=== PATIENT | female | born 1980 | race Caucasian/White ===

== ENCOUNTER 2017-03-04 04:17 | Emergency (ER) | payer OTHER ==
[~2017-03-04] VITALS: Ht 182.9 cm; Wt 118.0 kg
[~2017-03-04 04:17] MED LIST: IBUP800T23 PO; ROBA750T3 PO
[2017-03-04 04:22] VITALS: BP 116/77; PULSE 72; RESP 18; TEMP 98.5; O2SAT 98
[2017-03-04] MEDS ORDERED: VENTAER INH (04:31)
[2017-03-04] MEDS ORDERED: ZOFR4TAB PO (04:31)
[2017-03-04] MEDS ORDERED: SODIUM CHLOR 0.9% 1000 ML INJ 1,000 ML IV ONE (04:45)
[2017-03-04] MEDS ORDERED: DIPHENOXYLATE/ATROPINE 2.5 MG/0.025 MG TAB PO ONE (04:45)
[2017-03-04] MEDS ORDERED: ONDANSETRON HCL 4 MG/2 ML VIAL IV PUSH ONE (04:45)
[2017-03-04] MEDS ORDERED: LOMO2.5T PO (04:51)
[2017-03-04] MEDS ORDERED: ZOFR4TAB3 SL (04:51)
--- NOTE | 2017-03-04 04:51 | PD ---
HPI Chief Complaint: GI Complaint Time Seen by Provider: 04:38 Travel History International Travel<30 days: No Contact w/Intl Traveler<30days: No Traveled to known affect area: No History of Present Illness HPI 36-year-old female complains of abdominal cramping with nausea vomiting and diarrhea. Patient states that symptoms started yesterday. Patient states that she had fever yesterday. Patient states that she was seen by personal physician yesterday and given Phenergan IM injection. Patient states that she had persistent vomiting despite the medication. Patient denies any blood or mucus in the stool. Patient denies any headache. Patient denies any chest pain or shortness of breath. Patient states that the abdominal pain mild intermittent cramping pain localized to lower abdomen. Patient denies any pain radiation. Patient states that she is on her menstruation period now. PFSH Past Medical History Asthma: Yes Cardiovascular Problems: Yes (HTN) Diabetes: Yes (GESTATIONAL) Diminished Hearing: No Respiratory: Yes (Asthma) Influenza Vaccination: No ?: Not LMP: 03/04/17 Past Surgical History Surgical History: No Previous Surgery Section: Yes (x1) Social History Alcohol Use: No Tobacco Use: No Substance Use: No Allergies-Medications (Allergen,Severity, Reaction): Coded Allergies: No Known Allergies (Unverified , 03/04/17) Reported Meds & Prescriptions Reported Meds & Active Scripts Active Ibuprofen 800 Mg Tab 800 Mg PO Q8HR PRN Robaxin-750 (Methocarbamol) 750 Mg Tab 750 Mg PO QID Reported Zofran (Ondansetron HCl) 4 Mg Tab 4 Mg PO Q6HR PRN Ventolin Hfa 18 GM Inh (Albuterol Sulfate) 90 Mcg/Act Aer 1 Puff INH Q4H PRN Review of Systems General / Constitutional: No: Fever Eyes: No: Visual changes HENT: No: Headaches Cardiovascular: No: Chest Pain or Discomfort Respiratory: No: Shortness of Breath Gastrointestinal: Positive: Nausea, Vomiting, Diarrhea, Abdominal Pain Genitourinary: No: Dysuria Musculoskeletal: No: Pain Skin: No Rash Neurologic: No: Weakness Psychiatric: No: Depression Endocrine: No: Polydipsia Hematologic/Lymphatic: No: Easy Bruising Physical Exam Narrative GENERAL: Well-nourished, well-developed patient. SKIN: Focused skin assessment warm/dry. HEAD: Normocephalic. EYES: No scleral icterus. No injection or drainage. NECK: Supple, trachea midline. No JVD or lymphadenopathy. CARDIOVASCULAR: Regular rate and rhythm without murmurs, gallops, or rubs. RESPIRATORY: Breath sounds equal bilaterally. No accessory muscle use. GASTROINTESTINAL: Abdomen soft, non-tender, nondistended. MUSCULOSKELETAL: No cyanosis, or edema. BACK: Nontender without obvious deformity. No CVA tenderness. Neurologic exam normal. Data Data Last Documented VS Vital Signs Date Time Temp Pulse Resp B/P Pulse Ox O2 Delivery O2 Flow Rate FiO2 03/04/17 04:22 98.5 72 18 116/77 98 Orders Complete Blood Count With Diff (03/04/17 04:43) Comprehensive Metabolic Panel (03/04/17 04:43) Iv Access Insert/Monitor (03/04/17 04:43) Ecg Monitoring (03/04/17 04:43) Oximetry (03/04/17 04:43) Sodium Chlor 0.9% 1000 Ml Inj (Ns 1000 M (03/04/17 04:45) Ondansetron Inj (Zofran Inj) (03/04/17 04:45) Diphenoxylate/Atropine Tab (Lomotil Tab) (03/04/17 04:45) MDM Medical Decision Making Medical Screen Exam Complete: Yes Emergency Medical Condition: Yes Differential Diagnosis Differential diagnosis including gastroenteritis, dehydration, electrolyte imbalance. Narrative Course 36-year-old female with abdominal pain, nausea vomiting diarrhea. Diagnosis Primary Impression: Gastroenteritis Patient Instructions: General Instructions Additional Instructions: Clear fluid for 24 hours and advance as tolerated. Zofran and Lomotil as needed. Follow-up with personal physician. Return if persistent problem or worse. Med/Other Pt SpecificInfo: Prescription(s) given Scripts Diphenoxylate-Atropine (Lomotil)2.5-0.025 Mg Tab1 Tab PO Q6H PRN (DIARRHEA) #12 TAB Ref 0 Prov:Danny Clancy MD 03/04/17 Ondansetron Odt (Zofran Odt)4 Mg Tab4 Mg SL Q6HR PRN (Nausea/Vomiting) #10 TAB Prov:Danny Clancy MD 03/04/17 Disposition: 01 DISCHARGE HOME Condition: Stable Danny Clancy MD Mar 04, 2017 04:51
[2017-03-04 04:58] VITALS: RESP 18; O2SAT 99
[2017-03-04 05:28] LABS: ALKALINE PHOSPHATASE 75 U/L (45-117); HEMATOCRIT 39.5 % (35.0-46.0); MEAN CORPUSCULAR HEMOGLOBIN 27.3 PG (27.0-34.0); MEAN CORPUSCULAR HGB CONC 34.5 % (32.0-36.0); PLATELET COUNT 221 TH/MM3 (150-450); RED CELL DISTRIBUTION WIDTH 14.4 % (11.6-17.2); TOTAL BILIRUBIN ADULT 0.7 MG/DL (0.2-1.0); WHITE BLOOD COUNT 6.2 TH/MM3 (4.0-11.0)
[2017-03-04 05:29] LABS: HEMO FLAGS AUTO DIFF
[2017-03-04 05:31] LABS: ALT (GPT) 27 U/L (10-53); ANION GAP 6 MEQ/L (5-15); AST (GOT) 35 U/L (15-37); BICARBONATE 24.1 MEQ/L (21.0-32.0); BLOOD UREA NITROGEN 13 MG/DL (7-18); CHLORIDE 105 MEQ/L (98-107); GLOMERULAR FILTRATION RATE 62 ML/MIN (>89); POTASSIUM 4.3 MEQ/L (3.5-5.1); SODIUM (NA) 135 MEQ/L (136-145)
[2017-03-04 05:58] LABS: BANDS 31 % (0-6); NEUTROPHIL # MANUAL DIFF 4.7 TH/MM3 (1.8-7.7); PLATELET ESTIMATE SMEAR NORMAL (NORMAL); PLATELET MORPHOLOGY NORMAL (NORMAL); POLYS (SEG NEUTROPHILS) 44 % (16-70); SCAN/DIFF FINAL DIFF MANUAL; WBC DIFF SAMPLE 100
== END 2017-03-04 06:17 | disposition home or self-care (01) ==
LOC: NEPE 04:17
DX: K52.9 Noninfective gastroenteritis and colitis, unspecified (principal)
CPT/HCPCS: 80053; 85007; 85027; 96361; 96374; 99284; J2405; J7030